=== PATIENT | male | born 1960 | race Asian ===

== ENCOUNTER 2021-06-08 21:29 | Emergency (ER) | payer MEDICAID, SELFPAY ==
--- NOTE | ~2021-06-08 | CT_ITS ---
EXAMINATION: CTA OF THE HEAD/NECK CLINICAL INFORMATION: Severe dizziness. Question posterior circulation syndrome. COMPARISON: None. TECHNIQUE: A routine non contrast head CT was performed followed by a 70 mL bolus of Omnipaque 350. Subsequent multidetector helical imaging was performed of the head and neck. Delayed post contrast imaging was also performed through the head. Multiplanar reformats and MIP were also obtained. Internal carotid artery stenoses are assessed in accordance with NASCET criteria unless otherwise indicated. This CT examination was performed using dose optimization techniques as appropriate, variously including the following: *Automated exposure control *Adjustment of mA and/or kV according to patient size (this includes techniques or standardized protocols for targeted exams where dose is matched to indication/reason for exam; i.e. extremities or head) *Use of iterative reconstruction technique DLP: 2408 mGy-cm. FINDINGS: CT HEAD: There is no evidence of acute intracranial hemorrhage or territorial infarction. No abnormal mass effect or midline shift is seen. Simeon to white matter differentiation is well preserved. No extra-axial fluid collections are identified. No suspicious leptomeningeal or parenchymal enhancement on the post-contrast images. No hydrocephalus. No significant volume loss. There is no abnormal attenuation within the brain parenchyma. The osseous structures and soft tissues are normal. The mastoid air cells and visualized portions of the paranasal sinuses are well aerated. CTA NECK: The aortic arch is of normal caliber and the origins of the great vessels are patent without evidence of significant stenosis. The cervical portion of the vertebral arteries are patent bilaterally. No luminal irregularities in the common carotid arteries and the carotid bifurcations are patent bilaterally. The cervical portion of the internal carotid arteries are of normal caliber. The laryngeal structures and pharyngeal mucosal spaces are unremarkable. The oral cavity appears normal. The parotid and submandibular glands are normal. No pathologically enlarged lymph nodes. The thyroid gland is unremarkable. The lung apices are clear without evidence of pneumothorax. Spinal alignment is maintained. Mild cervical spondylosis is noted. CTA HEAD: The intradural portion of the vertebral arteries are of normal caliber. The basilar, superior cerebellar, and posterior communicating arteries are patent. The posterior, middle, and anterior cerebral arteries are of normal caliber without evidence of significant luminal irregularity. No definite intracranial aneurysms. CT/CT angio head neck IMPRESSION: 1. No acute intracranial finding. 2. No suspicious vascular abnormality. No vascular occlusion. No areas of stenosis.
[2021-06-08 21:48] VITALS: BP 160/93; PULSE 78; RESP 15; TEMP 37; O2SAT 99; BMI 31.1
[2021-06-08 22:37] LABS: MANUAL DIFF FLAG NO
[2021-06-08 22:38] LABS: Basophils Absolute Auto 0.1 X10*3/uL (0.0-0.2); Basophils Percent Auto 0.7 % (0-2); Eosinophils Absolute Auto 0.5 X10*3/uL (0.0-0.4); Eosinophils Percent Auto 4.5 % (0-4); Hematocrit 45.7 % (42-52); Hemoglobin 15.3 g/dl (14.0-18.0); Imm Gran Abs Auto 0.05 X10*3/uL (0.00-0.03); Imm Gran Pct Auto 0.5 % (0.0-0.4); Lymphocytes Absolute Auto 3.2 X10*3/uL (1.2-4.9); Lymphocytes Percent Auto 30.2 % (20-40); Mean Corpuscular HGB Conc 33.5 g/dl (31.0-36.0); Mean Corpuscular Hemoglobin 28.1 pg (27.0-33.0); Mean Platelet Volume 10.8 fL (9.4-12.4); Monocytes Absolute Auto 0.6 X10*3/uL (0.1-1.2); Monocytes Percent Auto 5.8 % (2-11); Neutrophils Absolute Auto 6.2 X10*3/uL (2.0-8.3); Neutrophils Percent Auto 58.3 % (45-73); Platelet Count 217 X10*3/uL (160-400); Red Blood Count 5.44 X10*6/uL (4.60-5.80); Red Cell Distribution Width 13.2 % (11.0-16.0); White Blood Count 10.7 X10*3/uL (4.8-10.8)
--- NOTE | 2021-06-08 22:43 | PC.NURSE ---
Patient states he went to [facility] yesterday and that blood work drawn and xrays but left without treatment because the wait was too long.
[2021-06-08 23:09] LABS: Anion Gap 15 (12-20); Blood Urea Nitrogen 13 mg/dL (9-16); Carbon Dioxide 26 mmol/L (22-29); Chloride 104 mmol/L (96-108); Creatinine Clr Calc Pharmacy 78.5; Estimated Glomerular Filt Rate > 60; Glucose Random 124 mg/dL (60-115); Potassium 4.2 mmol/L (3.3-5.1); Sodium 141 mmol/L (135-145)
--- NOTE | 2021-06-08 23:50 | ED_ITS ---
HPI - Headache General Chief Complaint: Headache Stated Complaint: headache, dizziness Time Seen by Provider: 06/08/21 23:49 Source: patient Mode of arrival: ambulatory Limitations: no limitations History of Present Illness HPI Narrative: Patient with no significant past medical history complaining of diffuse headache for last 3 weeks off and on without any relation to the light no fever no chills feels foggy in his mind patient denies any balance problem no nausea no vomiting no photosensitivity no relation with the posture Related Data Previous Rx's Medication Instructions Recorded vhuashekhd-ijbpfkcipdnys-ybwf 1 cap PO Q6H PRN #20 cap 06/09/21 [Fioricet] Allergies Allergy/AdvReac Type Severity Reaction Status Date / Time vancomycin [VANCOMYCIN] Allergy Severe FEELING OF Unverified 08/15/20 17:14 IMPENDING Review of Systems Review of Systems: Yes all other systems are reviewed and are negative [facility] Past Medical History Medical History No known health problems Social History Social History Advance Directives: No Advance Directives Information Provided: No Physical Exam Vital Signs: Vital Signs: Last Vital Signs Temp 98.6 F 06/08/21 21:48 Pulse 66 06/09/21 00:54 Resp 18 06/09/21 00:54 BP 142/94 H 06/09/21 00:54 Pulse Ox 99 06/09/21 00:54 Body Mass Index 31.1 Appearance: Alert. Oriented X3. No acute distress. Eyes: PERRLA, No Nystagmus ENT: Pharynx normal. Oral Mucosa moist no temporal artery tenderness Neck: Normal inspection. Neck supple. CVS: Normal heart rate and rhythm. Pulses normal. Respiratory: No respiratory distress. Equal air entry bilateral, no wheezing/r ales/rhonchi Abdomen: Soft and nontender. Bowel sounds are present, no mass palpable, no CVA tenderness Skin: Skin warm and dry. Normal skin color. Normal skin turgor. Extremities: No lower extremity edema. No calf tenderness Neuro: Oriented X 3. No motor deficit. No sensory deficit.No cerebellar signs , cranial nerves II-XII intact MDM - Headache MDM Narrative Medical decision making narrative: Patient with diffuse headache etiology not clear CTA head and neck is negative for any posterior circulation defect. headache likely from complex migraine patient advised to follow-up with n eurologist Lab Data Attestation: I reviewed the patient's lab results. Result diagrams: 06/08/21 22:29 06/08/21 22:29 Labs: Lab Results 06/08/21 06/08/21 Range/Units 22:29 22:29 WBC 10.7 (4.8-10.8) X10*3/uL RBC 5.44 (4.60-5.80) X10*6/uL Hgb 15.3 (14.0-18.0) g/dl Hct 45.7 (42-52) % MCV 84.0 (80-98) fL MCH 28.1 (27.0-33.0) pg MCHC 33.5 (31.0-36.0) g/dl RDW 13.2 (11.0-16.0) % Plt Count 217 (160-400) X10*3/uL MPV 10.8 (9.4-12.4) fL Immature Gran % (Auto) 0.5 H (0.0-0.4) % Neut % (Auto) 58.3 (45-73) % Lymph % (Auto) 30.2 (20-40) % [place] % (Auto) 5.8 (2-11) % Eos % (Auto) 4.5 H (0-4) % Baso % (Auto) 0.7 (0-2) % Lymph # (Auto) 3.2 (1.2-4.9) X10*3/uL [place] # (Auto) 0.6 (0.1-1.2) X10*3/uL Eos # (Auto) 0.5 H (0.0-0.4) X10*3/uL Baso # (Auto) 0.1 (0.0-0.2) X10*3/uL Abs Immat Gran (auto) 0.05 H (0.00-0.03) X10*3/uL Absolute Neuts (auto) 6.2 (2.0-8.3) X10*3/uL Absolute Nucleated RBC 0.000 (0.0-0.012) X10*3/uL Nucleated RBC % (auto) 0.0 (0.0-0.2) /100WBC Sodium 141 (135-145) mmol/L Potassium 4.2 (3.3-5.1) mmol/L Chloride 104 (96-108) mmol/L Carbon Dioxide 26 (22-29) mmol/L Anion Gap 15 (12-20) BUN 13 (9-16) mg/dL Creatinine 1.05 (0.5-1.4) mg/dL Estim Creat Clear Calc 78.5 Estimated GFR > 60 Random Glucose 124 H (60-115) mg/dL Calcium 10.0 (8.4-10.2) mg/dL Discharge Plan Discharge Clinical Impression: Headache Qualifiers: Headache type: new daily persistent Qualified Code(s): G44.52 - New daily persistent headache (NDPH) Patient Disposition: Home, Self-Care Instructions: Acute Headache (ED) Additional Instructions: Rest at home your headache is likely because of complex migraine Take pain medication for headache Follow neurologist for further management Prescriptions: New isjzbrzabg-unitbzoowqvjw-lsxe [Fioricet] 50-300-40 mg capsule 1 cap PO Q6H PRN (Reason: pain) Qty: 20 RF: 0 Referrals: Quinton Tao MD [Physician] - 1 week
[2021-06-09] MEDS: iohexoL 350 MG/ML 100 ML INFUS..BTL 70 ML IV (00:27)
[2021-06-09 00:54] VITALS: BP 142/94; PULSE 66; RESP 18; O2SAT 99
[2021-06-09] MEDS: Butalb/Acetamin/Caff 50/325/40 TABLET 1 TAB PO (00:55)
== END 2021-06-09 01:38 | disposition home or self-care (01) ==
PROVIDERS: Emergency Provider Internal Medicine; PCP Internal Medicine
DX: G44.52 New daily persistent headache (NDPH) (principal)
CPT/HCPCS: 36415; 70496; 70498; 80048; 85025; 99284; Q9967

== ENCOUNTER 2022-12-03 17:08 | Emergency (ER) | payer MEDICAID, SELFPAY ==
--- NOTE | ~2022-12-03 | XR_ITS ---
EXAMINATION: XR CHEST CLINICAL INFORMATION: Cough, fever COMPARISON: None TECHNIQUE: 2 views of the chest were obtained. FINDINGS: No significant abnormality is noted involving the heart, lungs, mediastinum, bony thorax or soft tissues. XR/XR chest 2V IMPRESSION: Unremarkable examination.
[2022-12-03 17:53] VITALS: BP 144/113; PULSE 93; RESP 19; TEMP 37.4; O2SAT 97; BMI 30.6
--- NOTE | 2022-12-03 17:56 | ED_ITS ---
HPI - General Adult General Chief complaint: General Medical <TOMA Lovell - Last Filed: 12/03/22 18:05> Stated complaint: Covid +/ Flu like symptoms/ Diff Breathing <TOMA Lovell - Last Filed: 12/03/22 18:05> Time Seen by Provider: 12/03/22 22:09 <TOMA Lovell - Last Filed: 12/03/22 18:05> Source: patient <Mariposa Casiano MD - Last Filed: 12/03/22 22:26> Mode of arrival: ambulatory <Mariposa Casiano MD - Last Filed: 12/03/22 22:26> Limitations: no limitations <Mariposa Casiano MD - Last Filed: 12/03/22 22:26> History of Present Illness HPI narrative: Patient comes to the emergency room complaining of testing positive for COVID-19 yesterday. Patient states that he has cough, his chest back hurt every time he coughs. Patient states that he does not have significant shortness of breath, does have mild sore throat. Patient states that around Alejandra time he had symptoms, then he started feeling better, and then 4-5 days ago he started having symptoms all over again. <Mariposa Casiano MD - Last Filed: 12/03/22 22:26> Related Data Home medications: Previous Rx's Medication Instructions Recorded gedtkkbxwh-pjnrqlaavsbbl-cxcgqdks 1 cap PO Q6H PRN pain #20 caps 06/09/21 50 mg-300 mg-40 mg capsule (Fioricet) codeine 10 mg-guaifenesin 100 mg/5 10 ml PO Q4-6H PRN cough #237 mL 12/03/22 mL oral liquid ibuprofen 600 mg tablet 600 mg PO Q8H PRN fever or pain 12/03/22 #20 tabs <TOMA Lovell - Last Filed: 12/03/22 18:05> Allergies/adverse reactions: Allergies Allergy/AdvReac Type Severity Reaction Status Date / Time vancomycin [VANCOMYCIN] Allergy Severe FEELING OF Verified 12/03/22 17:57 IMPENDING <TOMA Lovell - Last Filed: 12/03/22 18:05> Review of Systems Review of Systems: Constitutional : No Weight loss, No Fever, No Chills, No Night Sweats, No Fatigue, No Malaise ENT/Mouth : No Hearing loss, No Ear Pain, No Nasal Congestion, No Sinus Pain, No Hoarseness, complaining of mild sore throat, No Rhinorrhea, No Swallowing Difficulty Eyes: No Eye Pain, No Swelling, No Redness, No Foreign Body, No Discharge, No Vision Changes Cardiovascular : No Chest Pain, No SOB, No Dyspnea on Exertion, No Orthopnea, No Edema, No Palpitations Respiratory : Complaining of dry Cough, No Sputum, No Wheezing, No Smoke Exp osure, No Dyspnea Gastrointestinal : No Nausea, No Vomiting, No Diarrhea, No Constipation, No abdominal Pain, No Hematochezia, No Melena Genitourinary : no irregular bleeding, No Dysuria, No Urinary Frequency, No Hematuria, No Urinary Incontinence, No Urgency, No Flank Pain, No Urinary Flow Changes, No Hesitancy Musculoskeletal : Complaining of upper chest, rib and upper back pain every time he coughs, No joint pain, No Myalgias, No Joint Swelling Skin : No Skin Lesions, No rash Neuro : No Weakness, No Numbness, No Paresthesias, No Loss of Consciousness, No Dizziness, No Headache Psych : No Anxiety/Panic, No Depression, No SI/HI/AH/VH, No Social Issues, Heme/Lymph: No Bruising, No Bleeding,No Lymphadenopathy Endocrine : No Polyuria, No Polydipsia, No Temperature Intolerance <Mariposa Casiano MD - Last Filed: 12/03/22 22:26> [facility] Past Medical History Medical History: Medical History No known health problems <TOMA Lovell - Last Filed: 12/03/22 18:05> Social History Social History: Social History Advance Directives: No Advance Directives Information Provided: No <TOMA Lovell - Last Filed: 12/03/22 18:05> Physical Exam ED Vital Signs: Vital Signs - 24 hr 12/03/22 17:53 12/03/22 21:57 Temperature 99.3 F Pulse Rate 93 79 Respiratory Rate 19 18 Blood Pressure 144/113 H 127/87 Pulse Oximetry 97 98 Oxygen Delivery Method Room Air Room Air BMI result Body Mass Index 30.6 <TOMA Lovell - Last Filed: 12/03/22 18:05> Vital Signs - 24 hr 12/03/22 17:53 12/03/22 21:57 Temperature 99.3 F Pulse Rate 93 79 Respiratory Rate 19 18 Blood Pressure 144/113 H 127/87 Pulse Oximetry 97 98 Oxygen Delivery Method Room Air Room Air BMI result Body Mass Index 30.6 <Mariposa Casiano MD - Last Filed: 12/03/22 22:26> Const Other: Appearance: Alert. Oriented X3. No acute distress. Well-appearing Eyes: Pupils equal, round and reactive to light. ENT: Pharynx normal. Neck: Normal inspection. Neck supple. No lymph nodes noted. No crepitus CVS: Normal heart rate and rhythm. Pulses normal. Normal S1 and S2 Respiratory: No respiratory distress. Breath sounds normal. No Wheezing. No rales Abdomen: Soft and nontender. No rigidity. No distention. Skin: Skin warm and dry. Normal skin color. Normal skin turgor. Extremities: No lower extremity edema. No Lacerations. No Rash Neuro: Oriented X 3. No motor deficit. No sensory deficit. Moving all extremities. No slurred speech. CN 2 through 12 grossly intact Psych: calm, cooperative, normal affect <Mariposa Casiano MD - Last Filed: 12/03/22 22:26> Course Course Course Narrative: RME: 62-year-old male is here today for cough, shortness of breath, fever. Patient states that about 2 weeks ago he started with sore throat the turn in later to cough. Patient felt better after staying home for couple days then traveled to [place] came back home and his symptoms were worse. Patient started coughing having chills body aches. Patient tested himself this morning and tested positive for COVID. Patient reports that his tested positive as well. Today he stating that he is more shortness of breath, increased cough. Will do flu, RSV, COVID, strep. Will do chest x-ray. Low-grade fever will medicate patient with ibuprofen for body aches and fever. <TOMA Lovell - Last Filed: 12/03/22 18:05> Medications Administered Discontinued Medications Generic Name Dose Route Start Last Admin Trade Name Freq PRN Reason Stop Dose Admin Ibuprofen 600 mg 12/03/22 18:00 12/03/22 22:08 Ibuprofen 600 Mg Tablet PO 12/03/22 18:01 600 mg ONCE ONE Administration <Jessica Clemons, [employer] - Last Filed: 12/03/22 18:05> Medications Administered Discontinued Medications Generic Name Dose Route Start Last Admin Trade Name Freq PRN Reason Stop Dose Admin Ibuprofen 600 mg 12/03/22 18:00 12/03/22 22:08 Ibuprofen 600 Mg Tablet PO 12/03/22 18:01 600 mg ONCE ONE Administration <Mariposa Casiano MD - Last Filed: 12/03/22 22:26> Medical Decision Making Medical Decision Making [facility] Narrative: Patient did test positive for COVID-19, patient is immunized x3. Patient is well-appearing, normal oxygen saturation and respiratory rate. My chest x-ray interpretation: No infiltrates X-ray Radiology report: FINDINGS: No significant abnormality is noted involving the heart, lungs, mediastinum, bony thorax or soft tissues. XR/XR chest 2V IMPRESSION: Unremarkable examination. . I considered prescribing Paxlovid. I discussed with the patient that by now, he has approximately around day 5 of symptoms. Towards the end of window of treatment with Paxlovid. Patient is a to be treated symptomatically <Mariposa Casiano MD - Last Filed: 12/03/22 22:26> Differential Diagnosis Differential Diagnoses: The differential diagnosis associated with the presentation includes (COVID, viral URI, pneumonia) <Mariposa Casiano MD - Last Filed: 12/03/22 22:26> Lab Data [facility] Lab Attestation statement: I reviewed the patient's lab results. <Mariposa Casiano MD - Last Filed: 12/03/22 22:26> Labs: Lab Results 12/03/22 12/03/22 Range/Units 18:00 18:00 Influenza Type A (PCR) NEGATIVE (Negative) Influenza Type B (PCR) NEGATIVE (Negative) RSV RNA Qual (PCR) NEGATIVE (Negative) SARS-CoV-2 RNA (RT-PCR) POSITIVE A (Negative) S. pyogenes GrpA LILIANE Negative (Negative) <TOMA Lovell - Last Filed: 12/03/22 18:05> Lab Results 12/03/22 12/03/22 Range/Units 18:00 18:00 Influenza Type A (PCR) NEGATIVE (Negative) Influenza Type B (PCR) NEGATIVE (Negative) RSV RNA Qual (PCR) NEGATIVE (Negative) SARS-CoV-2 RNA (RT-PCR) POSITIVE A (Negative) S. pyogenes GrpA LILIANE Negative (Negative) <Mariposa Casiano MD - Last Filed: 12/03/22 22:26> Discharge Plan Discharge Clinical Impression: COVID-19 <TOMA Lovell - Last Filed: 12/03/22 18:05> Patient Disposition: Home, Self-Care <TOMA Lovell - Last Filed: 12/03/22 18:05> Instructions: COVID-19 (Coronavirus Disease 2019) (ED) <TOMA Lovell - Last Filed: 12/03/22 18:05> Additional Instructions: Please follow-up with your primary care physician tomorrow. If you have any worsening or new symptoms, please return to the emergency room or call 911 <TOMA Lovell - Last Filed: 12/03/22 18:05> Prescriptions: New codeine-guaifenesin 10-100 mg/5 mL liquid 10 ml PO Q4-6H PRN (Reason: cough) Qty: 237 0RF ibuprofen 600 mg tablet 600 mg PO Q8H PRN (Reason: fever or pain) Qty: 20 0RF No Action ddrnlljjaa-ypmaqbkayaysn-fljl [Fioricet] 50-300-40 mg capsule 1 cap PO Q6H PRN (Reason: pain) Qty: 20 0RF <TOMA Lovell - Last Filed: 12/03/22 18:05>
--- NOTE | 2022-12-03 18:05 | ECG_ITS ---
Test Reason : CX PAIN Blood Pressure : / mmHG Vent. Rate : 079 BPM Atrial Rate : 079 BPM P-R Int : 152 ms QRS Dur : 090 ms QT Int : 352 ms P-R-T Axes : 027 057 044 degrees QTc Int : 403 ms Normal sinus rhythm Normal ECG When compared with ECG of 03-MAR-2020 21:22, No significant change was found Referred By: Jessica Clemons Electronically Signed By:LISSETT EDWARDS
[2022-12-03 18:28] LABS: IDNOW Serial# 6674DD1D; Strep A Nucleic Acid Negative (Negative)
[2022-12-03 18:54] LABS: Influenza A PCR NEGATIVE (Negative); Influenza B PCR NEGATIVE (Negative); Resp Syncy Virus RNA Qual PCR NEGATIVE (Negative); SARS COV2 PCR INHOUSE POSITIVE (Negative)
[2022-12-03 21:57] VITALS: BP 127/87; PULSE 79; RESP 18; O2SAT 98
[2022-12-03] MEDS: Ibuprofen 600 MG TABLET PO (22:08)
--- NOTE | 2022-12-03 22:09 | PC.NURSE ---
pt reporting increased coughing, medicated per pit provider order, pt pending ED provider.
== END 2022-12-03 22:56 | disposition home or self-care (01) ==
PROVIDERS: Nurse Practitioner Family; Emergency Provider Emergency Medicine; PCP Internal Medicine
DX: U07.1 COVID-19 (principal); R05.9 Cough, unspecified; R07.89 Other chest pain; Z79.899 Other long term (current) drug therapy
CPT/HCPCS: 0241U; 36415; 71046; 87651; 93005; 99283

== ENCOUNTER 2024-05-26 06:16 | Emergency (ER) | payer OTHER, SELFPAY ==
--- NOTE | ~2024-05-26 | XR_ITS ---
EXAMINATION: XR CHEST CLINICAL INFORMATION: Chest pain. COMPARISON: 05/03/2023 TECHNIQUE: Frontal view of the chest was obtained. FINDINGS: The lungs are well expanded. No focal consolidation. No pleural effusion. Cardiac silhouette is unchanged. XR/XR chest 1V IMPRESSION: No acute abnormality.
[2024-05-26 06:40] VITALS: BP 142/100; PULSE 66; RESP 16; TEMP 37.1; O2SAT 99; BMI 31.7
--- NOTE | 2024-05-26 06:46 | ECG_ITS ---
Test Reason : CHEST PAIN Blood Pressure : / mmHG Vent. Rate : 061 BPM Atrial Rate : 061 BPM P-R Int : 154 ms QRS Dur : 100 ms QT Int : 392 ms P-R-T Axes : 022 026 041 degrees QTc Int : 394 ms Normal sinus rhythm Normal ECG When compared with ECG of 03-DEC-2022 18:07, No significant change was found Referred By: Generic ED Physician Electronically Signed By:RACHAEL BRONSON MD
[2024-05-26 07:15] LABS: Basophils Absolute Auto 0.1 X10*3/uL (0.0-0.2); Basophils Percent Auto 0.4 % (0-2); Eosinophils Absolute Auto 0.4 X10*3/uL (0.0-0.4); Eosinophils Percent Auto 3.1 % (0-4); Hematocrit 46.6 % (42.0-52.0); Hemoglobin 15.4 g/dl (14.0-18.0); Imm Gran Abs Auto 0.05 X10*3/uL (0.00-0.03); Imm Gran Pct Auto 0.4 % (0.0-0.4); Lymphocytes Absolute Auto 2.3 X10*3/uL (1.2-4.9); Lymphocytes Percent Auto 16.7 % (20-40); MANUAL DIFF FLAG NO; Mean Corpuscular Hemoglobin 27.9 pg (27.0-33.0); Mean Corpuscular Volume 84.6 fL (80.0-98.0); Monocytes Absolute Auto 0.9 X10*3/uL (0.1-1.2); Monocytes Percent Auto 6.3 % (2-11); Neutrophils Absolute Auto 9.9 x10*3/uL (2.0-8.3); Neutrophils Percent Auto 73.1 % (45-73); Platelet Count 203 X10*3/uL (160-400); Red Blood Count 5.51 X10*6/uL (4.60-5.80); Red Cell Distribution Width 13.5 % (11.0-16.0); White Blood Count 13.6 X10*3/uL (4.8-10.8)
[2024-05-26 07:16] LABS: Appearance Urine Clear; Color Urine Yellow; Glucose Urine UA Negative (Negative); Leukocyte Esterase Urine Negative (Negative); Nitrite Urine Negative (Negative); PH 5.5 (5.0-9.0); Specific Gravity - Urine 1.015 (1.005-1.025); Urine Blood Negative (Negative); Urine Ketones Negative (Negative); Urine Protein Negative (Neg-Trace)
[2024-05-26 07:24] LABS: D Dimer High Sensitivity < 150 NG/ML
[2024-05-26 07:25] LABS: IDNOW Serial# 08D9AD1C; Strep A Nucleic Acid Negative (Negative)
--- NOTE | 2024-05-26 07:28 | ED_ITS ---
HPI - General Adult General Chief complaint: General Medical Stated complaint: flu like, went traveling abroad Time Seen by Provider: 05/26/24 07:23 Source: patient Mode of arrival: ambulatory Limitations: no limitations History of Present Illness ED Provider: dixie LEON narrative: Patient is a 65-year-old male presenting to the emergency department with complaint of chest pain, productive cough, and sore throat for the past 2-3 days since returning from [facility]. States had sore throat while there, multiple sick contacts with similar symptoms, so went to pharmacy and took a course of azithromycin. Was not tested for strep. [place] better for a few days then symptoms returned. Cough productive of dark yellow sputum which is worse in the morning. Denies fevers since onset of symptoms. Denies any abdominal pain, nausea, vomiting or diarrhea. complaint: chest pain, cough Onset (ago): day(s) Location: chest Quality: aching Pain Consistency: constant Associated symptoms: cough and shortness of breath Treatments prior to arrival: other Related Data Previous Rx's ?Medication ?Instructions ?Recorded yuxoflkaiz-xziienlmklgdj-pxnhlbel 1 cap PO Q6H PRN pain #20 caps 06/09/21 50 mg-300 mg-40 mg capsule (Fioricet) codeine 10 mg-guaifenesin 100 mg/5 10 ml PO Q4-6H PRN cough #237 mL 12/03/22 mL oral liquid ibuprofen 600 mg tablet 600 mg PO Q8H PRN fever or pain 12/03/22 #20 tabs codeine 10 mg-guaifenesin 100 mg/5 5 ml PO Q6H PRN cough #120 mL 12/04/22 mL oral liquid benzonatate 100 mg capsule 100 mg PO TID PRN cough #20 caps 05/26/24 Allergies Allergy/AdvReac Type Severity Reaction Status Date / Time vancomycin [VANCOMYCIN] Allergy Severe FEELING OF Verified 05/26/24 06:44 IMPENDING Review of Systems 2 Review of Systems: As per HPI. Yes all other systems are reviewed and are negative Constitutional: Constitutional: Reports as per HPI REPLACED BY [facility] Past Medical History Medical History No known health problems Social History Social History Smoked in Last 30 Days: No Use of substances other than those prescribed or required for medical reasons: No Advance Directives: No Advance Directives Information Provided: Yes Do you have a plan to hurt others: No Plan Physical Exam ED Vital Signs: Vital Signs - 24 hr 05/26/24 06:40 05/26/24 08:12 Temperature 98.8 F 97.0 F Pulse Rate 66 61 Respiratory Rate 16 14 Blood Pressure 142/100 H 148/94 H Pulse Oximetry 99 97 Oxygen Delivery Method Room Air Room Air BMI result Body Mass Index 31.7 Vital signs have been reviewed and appear to be correct. Blood pressure elevated. Heart rate normal. Respiratory rate normal. Temperature normal. Oxygen saturation normal. Const General: cooperative, healthy appearing and no acute distress Orientation/consciousness: oriented to person, oriented to place, oriented to time and patient oriented x3 Limitations: no limitations HENMT Head: Yes normocephalic and Yes atraumatic Ears: external ears normal, TM's normal bilaterally and EAC's normal General nose exam: Normal external nose present Face and sinus: Yes face symmetric Mouth: oropharynx normal and moist mucous membranes Throat: Yes uvula midline, Yes abnormal tonsil (erythema without edema or exudate), Yes posterior oropharynx abnormal (erythema) and No uvular edema Eyes Pupils: Equal, round and reactive pupils present Neck Neck: Yes normal visual inspection, Yes no lymphadenopathy and Yes supple Resp Effort & Inspection: normal respiratory effort and able to speak in complete sentences Auscultation: clear to auscultation bilaterally Cardio Rate: regular rate Rhythm: regular rhythm Heart sounds: S1 normal heart sound present and S2 normal heart sound present GI Palpation (GI): Soft to palpation and nontender Auscultation: normoactive bowel sounds General: Yes no CVA tenderness Back/Spine/Pelvis Back: no CVA tenderness Skin General skin exam: elasticity normal and turgor normal Neuro General: oriented to person, oriented to place, oriented to time, patient oriented x3, moves all extremities, no focal motor deficits and CN's II-XI intact bilaterally Cranial nerves: Yes Equal, round and reactive pupils present Cognition (Neuro): normal cognition Extrem General: Yes full ROM, Yes no pedal edema and Yes no calf tenderness Psych Mental Status: mental status grossly normal Affect: normal affect Thought process: Normal thought process present Medications Administered Discontinued Medications Generic Name Dose Route Start Last Admin Trade Name Freq PRN Reason Stop Dose Admin Guaifenesin/Codeine Phosphate 10 ml 05/26/24 07:53 05/26/24 08:21 Guaifen/Codeine Sf 200/20/10ml 10 Ml Liquid PO 05/26/24 07:54 10 ml ONCE ONE Administration Medical Decision Making Medical Decision Making [facility] Narrative: Patient is a 65-year-old male presenting to the emergency department with complaint of chest pain, productive cough, and sore throat for the past 2-3 days since returning from [facility]. On exam patient is awake, A+Ox3, BP mildly elevated, VS otherwise WNL, afebrile, normal neurological exam without focal deficits, physical exam findings as above. Given reported symptoms and physical exam findings, initial differential includes strep pharyngitis, Covid, flu, RSV, other respiratory virus, bronchitis, pneumonia. Less likely ACS or PE but will check EKG, troponin, d-dimer. Labs notable for mild leukocytosis, negative d-dimer, negative troponin, no other significant abnormalities. EKG shows normal sinus rhythm. X-ray chest notable for no evidence of pneumonia. My interpretation is in agreement with the radiologist's interpretation. Respiratory panel positive for entero/rhinovirus. Patient updated on results and all questions answered. Advised Tylenol/ibuprofen, nasal saline spray, will send prescription for benzonatate. Return precautions discussed. Patient verbalized understanding of and agreement with plan. Differential Diagnosis Differential Diagnoses: The differential diagnosis associated with the presentation includes As per [facility] Admission/Observation Consideration of admission/observation: Escalation of care including admission/observation considered Patient would have been admitted to the hospital had their work up had any findings where hospital admission was appropriate and their clinical presentation warranted hospital admission. Lab Data [facility] Lab Attestation statement: I reviewed the patient's lab results. As per [facility] 05/26/24 07:07 05/26/24 07:07 Labs: Lab Results 05/26/24 05/26/24 Range/Units 07:07 07:35 WBC 13.6 H (4.8-10.8) X10*3/uL RBC 5.51 (4.60-5.80) X10*6/uL Hgb 15.4 (14.0-18.0) g/dl Hct 46.6 (42.0-52.0) % MCV 84.6 (80.0-98.0) fL MCH 27.9 (27.0-33.0) pg MCHC 33.0 (31.0-36.0) g/dl RDW 13.5 (11.0-16.0) % Plt Count 203 (160-400) X10*3/uL MPV 10.0 (9.4-12.4) fL Immature Gran % (Auto) 0.4 (0.0-0.4) % Neut % (Auto) 73.1 H (45-73) % Lymph % (Auto) 16.7 L (20-40) % [place] % (Auto) 6.3 (2-11) % Eos % (Auto) 3.1 (0-4) % Baso % (Auto) 0.4 (0-2) % Lymph # (Auto) 2.3 (1.2-4.9) X10*3/uL [place] # (Auto) 0.9 (0.1-1.2) X10*3/uL Eos # (Auto) 0.4 (0.0-0.4) X10*3/uL Baso # (Auto) 0.1 (0.0-0.2) X10*3/uL Abs Immat Gran (auto) 0.05 H (0.00-0.03) X10*3/uL Absolute Neuts (auto) 9.9 H (2.0-8.3) x10*3/uL Absolute Nucleated RBC 0.000 (0.0-0.012) X10*3/uL Nucleated RBC % (auto) 0.0 (0.0-0.2) /100WBC D-Dimer High Sensitivty < 150 NG/ML Sodium 140 (135-145) mmol/L Potassium 4.6 (3.3-5.1) mmol/L Chloride 107 (96-108) mmol/L Carbon Dioxide 25 (22-29) mmol/L Anion Gap 13 (12-20) BUN 15 (9-16) mg/dL Creatinine 1.10 (0.5-1.4) mg/dL Estim Creat Clear Calc 71.8 Estimated GFR > 60 Random Glucose 93 (60-115) mg/dL Calcium 10.2 (8.4-10.2) mg/dL Troponin I High Sens < 2.7 (<3.5-35.0) ng/L Urine Color Yellow Urine Appearance Clear Urine pH 5.5 (5.0-9.0) Ur Specific [place] 1.015 (1.005-1.025) Urine Protein Negative (Neg-Trace) mg/dL Urine Glucose (UA) Negative (Negative) mg/dL Urine Ketones Negative (Negative) mg/dL Urine Blood Negative (Negative) Urine Nitrite Negative (Negative) Ur Leukocyte Esterase Negative (Negative) Respiratory Panel Banks See Note Adenovirus (Rapid PCR) Not Detected (Not Detect.) B.pert (TEM-PCR) Not Detected (Not Detect.) B.parapertussis DNA PCR Not Detected (Not Detect.) C. pneumoniae DNA (PCR) Not Detected (Not Detect.) Coronavirus OC43 (PCR) Not Detected (Not Detect.) Coronavirus HKU1 (PCR) Not Detected (Not Detect.) Coronavirus 229E (PCR) Not Detected (Not Detect.) Coronavirus NL63 (PCR) Not Detected (Not Detect.) Human Metapneumovir PCR Not Detected (Not Detect.) Influenza A (RT-PCR) Not Detected (Not Detect.) Influenza B (RT-PCR) Not Detected (Not Detect.) M. pneumoniae (PCR) Not Detected (Not Detect.) Parainfluenza 1 (PCR) Not Detected (Not Detect.) Parainfluenza 2 (PCR) Not Detected (Not Detect.) Parainfluenza 3 (PCR) Not Detected (Not Detect.) Parainfluenza 4 (PCR) Not Detected (Not Detect.) RSV (PCR) Not Detected (Not Detect.) Entero/Rhino (PCR) Detected A (Not Detect.) SARS-CoV-2 RNA (RT-PCR) Not Detected (Not Detect.) S. pyogenes GrpA LILIANE Negative (Negative) Independent Interpretation I performed an independent interpretation of an: EKG (normal sinus rhythm, rate 61bpm, normal [place] interval and QTc, no change from prior) and Plain X-Ray Interpretation: No evidence of pneumonia on chest xray Radiology Impression Discussion of test interpretation with radiology: I have reviewed the radiologist's reading. Radiologist Impression: FINDINGS: The lungs are well expanded. No focal consolidation. No pleural effusion. Cardiac silhouette is unchanged. XR/XR chest 1V IMPRESSION: No acute abnormality. External Record Review External record reviewed: Inpatient record, Office record and Outpatient record Discharge Plan Discharge Clinical Impression: Rhinovirus infection Patient Disposition: Home, Self-Care Additional Instructions: You were evaluated in the emergency department today for sore throat and cough. Your Covid, flu, and strep tests were all negative. Your full respiratory panel was positive for entero/rhinovirus. Your symptoms will resolve on their own with time and rest. You should ensure adequate fluid intake, and can use Tylenol 650 mg or ibuprofen 600 mg every 6 hours as needed for fever or discomfort. You are being prescribed benzonatate which you can take every 8 hours as needed for cough. We also recommend that you use over-the counter nasal saline spray. Please follow-up with your primary care provider this week. Return to the emergency department if you develop chest pain, worsening shortness of breath, difficulty swallowing, fever 100.4? F or greater or any other concerning symptoms. Prescriptions: New benzonatate 100 mg capsule 100 mg PO TID PRN (Reason: cough) Qty: 20 0RF No Action hmeufbmzag-hegldebnnxsop-ttsk [Fioricet] 50-300-40 mg capsule 1 cap PO Q6H PRN (Reason: pain) Qty: 20 0RF codeine-guaifenesin 10-100 mg/5 mL liquid 10 ml PO Q4-6H PRN (Reason: cough) Qty: 237 0RF ibuprofen 600 mg tablet 600 mg PO Q8H PRN (Reason: fever or pain) Qty: 20 0RF codeine-guaifenesin 10-100 mg/5 mL liquid 5 ml PO Q6H PRN (Reason: cough) Qty: 120 0RF Print Language: Telugu
[2024-05-26 07:29] LABS: Anion Gap 13 (12-20); Blood Urea Nitrogen 15 mg/dL (9-16); Calcium 10.2 mg/dL (8.4-10.2); Carbon Dioxide 25 mmol/L (22-29); Chloride 107 mmol/L (96-108); Creatinine Clr Calc Pharmacy 71.8; Estimated Glomerular Filt Rate > 60; Glucose Random 93 mg/dL (60-115); Potassium 4.6 mmol/L (3.3-5.1); Sodium 140 mmol/L (135-145)
[2024-05-26 07:46] LABS: Troponin-I High Sensitivity < 2.7 ng/L (<3.5-35.0)
[2024-05-26 08:12] VITALS: BP 148/94; PULSE 61; RESP 14; TEMP 36.1; O2SAT 97
[2024-05-26] MEDS: guaiFEN/Codeine SF 200/20/10ML 10 ML LIQUID PO (08:21)
[2024-05-26 11:03] LABS: Adenovirus PCR Not Detected (Not Detect.); Bordetella parapertussis PCR Not Detected (Not Detect.); Bordetella pertussis PCR Not Detected (Not Detect.); Chlamydia pneumoniae PCR Not Detected (Not Detect.); Coronavirus 229E PCR Not Detected (Not Detect.); Coronavirus HKU1 PCR Not Detected (Not Detect.); Coronavirus NL63 PCR Not Detected (Not Detect.); Coronavirus OC43 PCR Not Detected (Not Detect.); Human metapneumovirus PCR Not Detected (Not Detect.); Influenza A PCR Not Detected (Not Detect.); Influenza B PCR Not Detected (Not Detect.); Mycoplasma pneumoniae PCR Not Detected (Not Detect.); Parainfluenza 1 PCR Not Detected (Not Detect.); Parainfluenza 2 PCR Not Detected (Not Detect.); Parainfluenza 3 PCR Not Detected (Not Detect.); Parainfluenza 4 PCR Not Detected (Not Detect.); RSV PCR Not Detected (Not Detect.); Rhino/Enterovirus PCR Detected (Not Detect.); SARS-CoV-2 PCR Not Detected (Not Detect.)
[2024-05-26 11:34] VITALS: BP 130/94; PULSE 68; RESP 14; TEMP 36.2; O2SAT 98
[2024-05-26 11:35] VITALS: BP 130/94; PULSE 80; RESP 14; TEMP 36.2; O2SAT 99
== END 2024-05-26 11:41 | disposition home or self-care (01) ==
PROVIDERS: Emergency Provider Emergency Medicine
DX: B34.8 Other viral infections of unspecified site (principal); R07.89 Other chest pain; R05.9 Cough, unspecified; Z79.899 Other long term (current) drug therapy
CPT/HCPCS: 36415; 71045; 80048; 81003; 84484; 85025; 85379; 87633; 87651; 93005; 99283; 99284

== ENCOUNTER → 2024-05-26 06:46 | Outpatient (BNV) | payer OTHER, SELFPAY | PROVIDERS: Emergency Provider Emergency Medicine; Visit Provider Internal Medicine Cardiovascular Disease | DX: R07.9 Chest pain, unspecified (principal) | CPT/HCPCS: 93010 ==